=== PATIENT | female | born 1955 | race Caucasian/White ===

== ENCOUNTER → 2017-12-09 11:18 | Outpatient (CLI) | payer BC | END | disposition home or self-care (01) | LOC: D.US 12-08 14:30 | DX: R31.9 Hematuria, unspecified (principal) ==

== ENCOUNTER → 2019-01-13 09:08 | Outpatient (CLI) | payer MEDICARE, BC ==
[2019-01-14 08:11] LABS: IMMUNOGLOBULIN A 258 mg/dL (87-352); IMMUNOGLOBULIN G 827 mg/dL (700-1600); IMMUNOGLOBULIN M 41 mg/dL (26-217)
[2019-01-17 08:08] LABS: IMMUNOGLOBULIN E 37 IU/mL (6-495)
== END | disposition home or self-care (01) ==
LOC: D.RT 09:08
PROVIDERS: ATTEND Internal Medicine Pulmonary Disease
DX: J47.9 Bronchiectasis, uncomplicated (principal); R93.89 Abnormal findings on diagnostic imaging of other specified body structures

== ENCOUNTER → 2019-01-24 08:26 | Outpatient (CLI) | payer MEDICARE, BC ==
[~2019-01-24 08:26] MED LIST: ATIVAN0.5 MG PO; BUPROPION HCL75 MG PO; CLARITIN 10 MG10 MG PO; GINKGO BILOBA120 MG PO; PROZAC40 MG PO; RED YEAST RICE600 MG PO; TRAZODONE HCL150 MG PO
[2019-02-07 12:14] VITALS: BMI 21.6
== END | disposition home or self-care (01) ==
LOC: D.HCCECHO 08:26
PROVIDERS: ATTEND Internal Medicine Cardiovascular Disease
DX: I20.9 Angina pectoris, unspecified (principal)

== ENCOUNTER 2019-02-07 11:27 | Outpatient (CLI) | payer MEDICARE, BC ==
[~2019-02-07] VITALS: Ht 163.8 cm; Wt 58.2 kg
--- NOTE | ~2019-02-07 | HEMODYNAMI ---
PATIENT:RAYMUNDO POLANCO MEDICAL RECORD: [id number] : 59 LOCATION:[facility] ADMISSION DATE: 02/07/19 Generatedon:02/07/201914:22 Patient name: RAYMUNDO POLANCO Patient #: [id number] SSN: [id number] : 1955 Date of study: 02/07/2019 Page: Of Hemodynamic Procedure Report Patient Data Patient Demographics Procedure consent was obtained First Name: RAYMUNDO Gender: Female Last Name: COLLIN : 1955 Middle Initial: ANJELICA Age: 64 year(s) Patient #: [id number] Race: SSN: [id number] Additional ID: [id number] Contact details Address: [address] [place] [address] [address] State: [place] City: [place] Zip code: [address] Past Medical History Allergies Allergen Reaction Date Comments Reported Other 02/07/2019 PCN,STATIN/SULFITE/VICODIN allergy Admission Admission Data Admission Date: 02/07/2019 Admission Time: 11:27 Arrival Date: 02/07/2019 Arrival Time: 0:00 Admit Source: Other Insurance Payor: Medicare HIC #: [id number] Height (in.): 64.57 BSA: 1.63 (m2) Height (cm.): 164 BMI: 21.56 (kg/m2) Weight (lbs.): 127.87 Weight (kg.): 58 Lab Results Lab Result Date: 02/07/2019 Lab Result Time: 0:00 Biochemistry Name Units Result Min Max BUN mg/dl 23 --(----)-* 7 18 Creatinine mg/dl 0.8 --(-*--)-- 0.6 1.3 eGFR ml/min 76.35857 *-(----)-- 90 120 NONAFRICAN CBC Name Units Result Min Max Hemoglobin g/dl 12.1 *-(----)-- 13.5 17.5 Procedure Procedure Types Cath Procedure Diagnostic Procedure LHC LHC w/Coronaries Sedation Charges Moderate Sedation up to 15 minutes Procedure Description Procedure Date Procedure Date: 02/07/2019 Procedure Start Time: 14:07 Procedure End Time: 14:20 Procedure Staff Name Function Paul Rivers MD Performing Physician Ora Saunders RT Monitor Mine Reich RT Monitor Lyric Elizabeth RN Nurse Stacy Morales RT Scrub Procedure Data Cath Procedure Fluoroscopy Diagnostic fluoroscopy Total fluoroscopy Time: 0 time: 0 min min Diagnostic fluoroscopy Total fluoroscopy dose: 182 dose: 182 mGy mGy Contrast Material Contrast Material Type Amount (ml) Isovue 300 61 Entry Location Entry Primary Successful Side Size Upsize Upsize Entry Closure Succes sful Closure Location (Fr) 1 (Fr) 2 (Fr) Remarks Device Remarks Femoral Right 5 Fr Exoseal artery Estimated blood loss: 5 ml Diagnostic catheters Device Type Used For End Catheter Placement MULTIPACK JL 4.0 5Fr Left Coronary catheter Angiography MULTIPACK 3DRC 5Fr Right Coronary catheter Angiography MULTIPACK Pigtail 5 Fr LV Angiography catheter Procedure Complications No complications Procedure Medications Medication Administration Route Dosage 0.9% NaCl I.V. 100 ml/hr Oxygen etCO2 Nasal cannula 2 l/min Lidocaine 2% added to field 20 Heparin Flush Bag added to field 2 bags (1000units/500ml NS) Zofran I.V. 4 mg Versed I.V. 2 mg Fentanyl I.V. 50 mcg Versed I.V. 2 mg Fentanyl I.V. 50 mcg Hemodynamics Rest BSA: 1.63 (m2) HGB: 12.1 (g/dl) O2 Consumption: Estimated: 148.99 (ml/min) O2 Co nsumption indexed: Estimated:91.4 (ml/min/m) Heart Rate: 63 (bpm) Pressure Samples Time Site Value (mmHg) Purpose Heart Use Rate(bpm) 14:15 LV 111/-7,10 Snapshot 72 14:16 AO 109/52(77) Pullback 74 14:16 LV 118/-10,11 Pullback 74 Gradients Valve Time Site 1 Site 2 Mean SEP/DFP Peak To Heart Use (mmHg) (sec/min) Peak Rate (mmHg) (bpm) Aortic 14:16 LV AO 12 23 9 74 118/-10,11 109/52(77) Calculations Valve P-P Mean Valve Index Valve Source Name Gradient Area Flow (cm2) Aortic 9 12 9 12 Snapshots Pre Cath Intra NCS Post Cath Vital Signs Time Heart Resp SPO2 etCO2 NIBP (mmHg) Rhythm Pain Sedation Rate (ipm) (%) (mmHg) Status Level (bpm) 13:49:12 70 14 99 34 98/74(84) NSR 0 (11) 10(A) , No pain 13:54:09 68 15 99 26.8 137/68(119) NSR 0 (11) 10(A) , No pain 13:58:23 68 17 98 27.5 128/68(104) NSR 0 (11) 10(A) , No pain 14:02:33 68 17 100 48.3 124/77(102) NSR 0 (11) 10(A) , No pain 14:06:45 69 18 99 48.3 120/70(100) NSR 0 (11) 10(A) , No pain 14:10:53 76 17 100 54.3 130/75(121) NSR 0 (11) 9(A) , No pain 14:15:07 72 16 99 17.1 106/66(91) NSR 0 (11) 9(A) , No pain 14:19:13 71 18 99 43.1 111/61(88) NSR 0 (11) 10(A) , No pain Medications Time Medication Route Dose Verified Delivered Reason Notes Eff ectiveness by by 13:46:03 0.9% NaCl I.V. 100 Paul Lyric used for ml/hr Silvestre Elizabeth help desk agent 13:46:10 Oxygen etCO2 2 Paul Lyric used for Nasal l/min Silvestre Elizabeth procedure cannula RN 13:46:14 Lidocaine 2% added 20ml Paul Paul for local to vial Silvestre Rivers MD anesthetic field 13:46:18 Heparin Flush added 2 Paul Paul used for Bag to bags Silvestre Rivers MD procedure (1000units/500ml field NS) 13:46:30 Zofran I.V. 4 mg Paul Lyric for nausea Silvestre Elizabeth RN 14:02:35 Versed I.V. 2 mg Paul Lyric for Silvestre Elizabeth sedation RN 14:02:40 Fentanyl I.V. 50 Paul Lyric for mcg Silvestre Elizabeth sedation RN 14:08:18 Fentanyl I.V. 50 Paul Lyric for mcg Silvestre Elizabeth sedation RN 14:08:33 Versed I.V. 2 mg Paul Lyric for Silvestre Elizabeth sedation stripper black and white Log Time Note 13:06:22 Informed consent obtained and on chart 13:08:10 Procedure Status Elective Heart Cath (OP). 13:09:03 Diagnostic Cath Status : Elective 13:09:19 Time tracking: Regular hours (M-F 7:00 - 5:00) 13:09:26 Plan of Care:Hemodynamics will remain stable., Cardiac rhythm will remain stable., Comfort level will be maintained., Respiratory function will remain adequate., Patient/ family verbilizes understanding of procedure., Procedure tolerated without complication., Recovers from procedure without complications.. 13:11:21 Arrival Date: 02/07/2019 12:00:00 AM 13:11:49 Insurance Payor : Medicare 13:11:54 Admit Source: Other 13:12:00 Patient Height : 64.57 inches 13:12:10 Patient Weight : 127.87 lbs 13:13:13 Lab Result : Hemoglobin 12.1 g/dl 13:13:13 Lab Result : eGFR NONAFRICAN 76.48459 ml/min 13:13:13 Lab Result : Creatinine 0.8 mg/dl 13:13:13 Lab Result : BUN 23 mg/dl 13:17:23 ACC Patient presents with Stable Angina CCS Anginal Class 2--Slight limitation of ordinary activity. 13:17:58 ACCPatient has been prescribed/administered the following anti-anginal medication within the last 2 weeks: None 13:19:53 Patient allergic to Other allergyPCN,STATIN/SULFITE/VICODIN 13:34:29 Lyric Elizabeth RN sent for patient. Start room use. 13:41:34 Patient received from Pre/Post Procedure Room to CCL 1 Alert and oriented. Tansferred to table in Supine position. 13:41:36 Warm blankets applied, and dee hugger turned on for patient comfort. 13:41:37 Correct patient and procedure confirmed by team. 13:41:38 ECG and BP/O2 sat monitors applied to patient. 13:46:03 0.9% NaCl 100 ml/hr I.V. was administered by Lyric Elizabeth RN; used for procedure; Verbal order read back and verified. 13:46:10 Oxygen 2 l/min etCO2 Nasal cannula was administered by Lyric Elizabeth RN ; used for procedure; Verbal order read back and verified. 13:46:14 Lidocaine 2% 20ml vial added to field was administered by Paul Rivers MD ; for local anesthetic; Verbal order read back and verified. 13:46:18 Heparin Flush Bag (1000units/500ml NS) 2 bags added to field was administered by Paul Rivers MD; used for procedure; Verbal order read back and verified. 13:46:30 Zofran 4 mg I.V. was administered by Lyric Elizabeth RN; for nausea; Verbal order read back and verified. 13:47:55 Vital chart was started 13:49:58 H&P Date Dictated: 02/07/2019 H&P Addendum completed by physician on da y of procedure. (MUST COMPLETE FOR ALL OUTPATIENTS), New H&P dictated by physician.. 13:50:00 Pre-procedure instructions explained to patient. 13:50:01 Pre-op teaching completed and patient verbalized understanding. 13:50:05 Family in patients room. 13:50:10 Patient NPO since Midnight. 13:50:21 Is the patient allergic to Iodine/contrast media? No. 13:50:24 Was the patient premedicated? Yes 13:50:26 Is patient on blood thinner?No 13:50:33 Patient diabetic? No. 13:50:37 Patient not . Patient is over age 55. 13:50:38 - 13:50:39 ----Pre-sedation anethsthesia assessment.---- 13:50:47 Previous problem with sedation/anesthesia? Yes NAUSEA 13:50:53 Snore? Yes 13:50:55 Sleep apnea? No 13:50:58 Deviated septum? No 13:51:00 Opens mouth fully? Yes 13:51:01 Sticks out tongue? Yes 13:51:05 Airway obstruction? No ? 13:51:13 Dentures? No ? 13:51:35 Pre procedure: right dorsailis pedis pulse 1+ Palpable, but thready & weak; easily obliterated 13:51:41 Pre procedure: left dorsailis pedis pulse 1+ Palpable, but thready & weak; easily obliterated 13:51:54 Modified Darien's test Ulnar > 7 seconds.FAILED. 13:52:25 Patient pain scale 0/10 ?. 13:52:37 IV patent on arrival in left forearm with 0.9% NaCl at [facility]. 13:52:44 Baseline sample Acquired. 13:52:50 Rhythm: sinus rhythm 13:52:53 Full Disclosure recording started 13:53:10 Lab results completed and on chart. 13:55:02 Risk of Mortality: 0.1 13:55:07 Risk of blood transfusion: 2.3 13:55:13 Risk of LEIGHTON: 0.6 13:55:19 Right groin area was prepped with chlora-prep and draped in sterile fashion 13:55:24 Alarms reviewed by R. N. 13:55:24 Sharps counted by scrub and verified by R.N. 13:55:35 Use device set Femoral Dx 13:55:37 ACIST Syringe (55184) opened to sterile field. 13:55:38 Bag Decanter (2002S) opened to sterile field. 13:55:40 Medline Cath Pack ([id number]) opened to sterile field. 13:55:42 ACIST Hand Control (82598) opened to sterile field. 13:55:43 ACIST Manifold (99885) opened to sterile field. 13:55:44 DIAGNOSTIC Multipack 5Fr catheter set ([id number]) opened to sterile field. 13:55:46 Tegaderm 4 x 4 (1626W) opened to sterile field. 13:55:48 SHEATH 5FR [place] ([id number]) opened to sterile field. 13:55:49 EMERALD Guide Wire (463-301) opened to sterile field. 14:00:56 Physician arrived 14:00:57 --------ALL STOP TIME OUT------ 14:00:59 Final Timeout: patient, procedure, and site verified with staff and physician. All members of the team are in agreement. 14:01:01 Right groin site verified by team. 14:01:08 Fire Safety Assessment: A--An alcohol-based skin anteseptic being used preoperatively., C--Open oxygen or nitrous oxide is being used., D--An ESU, laser, or fiber-optic light is being used. 14:01:14 Physical assessment completed. ASA score P 2 - A patient with mild systemic disease as per Paul Rivers MD. 14:01:21 2) 60-89 Mildly reduced kidney function, and other findings (as for stage 1) point to kidney disease. 14:01:26 Maximum allowable contrast dose (3.7 X eGFR X 0.75)214 ml. 14:01:32 Sedation plan: IV Moderate Sedation Medication:Versed, Fentanyl 14:01:54 Zero performed for pressure channel P1 14:02:35 Versed 2 mg I.V. was administered by Lyric Elizabeth RN; for sedation; Verbal order read back and verified. 14:02:40 Fentanyl 50 mcg I.V. was administered by Lyric Elizabeth RN; for sedation ; Verbal order read back and verified. 14:07:32 Procedure started. 14:07:38 Local anesthetic to right femoral artery with Lidocaine 2% by Paul thomas MD.INITIAL ACCESS ONLY 14:08:18 Fentanyl 50 mcg I.V. was administered by Lyric Elizabeth RN; for sedation ; Verbal order read back and verified. 14:08:33 Versed 2 mg I.V. was administered by Lyric Elizabeth RN; for sedation; Verbal order read back and verified. 14:09:48 A 5 Fr sheath was inserted into the Right Femoral artery 14:11:07 A MULTIPACK JL 4.0 5Fr catheter was advanced over the wire and used for Left Coronary Angiography. 14:11:28 LCA angiography performed. 14:11:45 Injector settings: Ml/sec: 3, Volume: 6, 14:12:23 Catheter removed. 14:12:35 A MULTIPACK 3DRC 5Fr catheter was advanced over the wire and used for Right Coronary Angiography. 14:13:37 RCA angiography performed. 14:13:42 Injector settings: Ml/sec: 3, Volume: 6, 14:14:09 ACCDominant side:Left 14:14:18 Catheter removed. 14:14:25 A MULTIPACK Pigtail 5 Fr catheter was advanced over the wire and used for LV Angiography. 14:15:15 LV gram done using CARBONE 14:15:31 Injector settings: Ml/sec: 10, Volume: 20, 14:16:01 LV hemodynamics recorded. 14:16:10 EF : 60 % 14:16:39 Catheter removed. 14:16:51 EXOSEAL 5Fr (EX500) opened to sterile field. 14:17:08 Sheath removed intact; hemostasis achieved with Exoseal to the Right Femoral artery. 14:17:44 Contrast amount:Isovue 300 61ml. 14:17:47 Procedure ended.(Physican Out) 14:18:23 Fluoroscopy time 00.00 minutes. 14:18:30 Fluoroscopy dose: 182 mGy 14:18:30 Flurop Dose total: 182 14:18:39 Dose Area Product 69884 mGy/cm. 14:18:42 Maximum allowable dose exceeded? No. 14:18:45 Sharps counted by scrub and verified by R.N. 14:18:49 Insertion/operative site no bleeding no hematoma. 14:18:54 Post-op/insertion site Right Femoral artery dressed using a 4 x 4 and Tegaderm. 14:19:00 Post right femoral artery:stable 14:19:04 Post Procedure Pulses reassessed and unchanged 14:19:09 Post-procedure physical assessment completed. ASA score P 2 - A patient with mild systemic disease as per Paul Rivers MD. 14:19:14 Post procedure rhythm: unchanged. 14:19:19 Estimated blood loss: 5 ml 14:19:22 Post procedure instruction explained to patient.Patient verbalizes understanding. 14:19:23 Patient needs reinforcement of post procedure teaching. 14:19:41 Procedure type changed to Cath procedure, Diagnostic procedure, LHC, C w/Coronaries, Sedation Charges, Moderate Sedation up to 15 minutes 14:19:43 Procedure and supply charges have been captured, reviewed, submitted an d are correct. 14:20:18 Procedure Complication : No complications 14:20:22 Vital chart was stopped 14:20:26 [facility] Findings: mild to moderate CAD (<70%) 14:20:30 Operative report dictated upon procedure completion. 14:20:31 See physician's report for complete and final results. 14:20:33 Report given to Pre/Post Procedure Room. 14:20:37 Patient transfered to Pre/Post Procedure Room with Stretcher. 14:20:41 Procedure ended. 14:20:41 Full Disclosure recording stopped 14:20:45 End room use (Document Last) 14:20:45 End room use (Document Last) Device Usage Item Name Manufacture Quantity Catalog Hospital Part Current Minimal L ot# / Number Charge Number Stock Stock Serial# Code ACIST Acist 1 [id number] 706222 711332 [id number] 20 Syringe Medical (07562) Systems Inc Bag Microtek 1 2001S 639392 31593 [id number] 5 Decanter Medical Inc. () Medline Medline 1 [id number] 612668 70814 323774 5 Cath Pack ([id number]) ACIST Hand Acist 1 73267 967332 255877 626306 5 Control Medical (36682) Systems Inc ACIST Acist 1 15539 524185 049887 091393 5 Manifold Medical (88260) Systems Inc DIAGNOSTIC Cardinal 1 [id number] 495110 03047 799082 30 Multipack Health 5Fr catheter set (XT7275) Tegaderm 4 3M 1 1626W 480154 376150 377003 5 x 4 (1626W) SHEATH 5FR Terumo 1 [id number] 036462 219580 437880 5 [place] (AJK563) EMERALD Cardinal 1 502-455 209476 712079 422065 5 Guide Wire Health (502-455) MULTIPACK Cardinal 1 776912 5 JL 4.0 5Fr Health catheter MULTIPACK Cardinal 1 179482 5 3DRC 5Fr Health catheter MULTIPACK Cardinal 1 267660 5 Pigtail 5 Health Fr catheter EXOSEAL 5Fr Cardinal 1 EX500 801793 168908 556098 10 (EX500) Health Signature Audit Deaver Stage Time Signature Unsigned Intra-Procedure 02/07/2019 Mine 2:21:31 PM Damir RT(R) (CV) Intra-Procedure 02/07/2019 Lyric Elizabeth 2:22:04 PM RN Intra-Procedure 02/07/2019 Paul Rivers MD 2:22:[address] [id number]
[2019-02-07] MEDS ORDERED: TRAZODONE HCL150 MG PO (11:48)
[2019-02-07] MEDS ORDERED: PROZAC40 MG PO (11:49)
[2019-02-07] MEDS ORDERED: BUPROPION HCL75 MG PO (11:49)
[2019-02-07] MEDS ORDERED: CLARITIN 10 MG10 MG PO (11:50)
[2019-02-07] MEDS ORDERED: ATIVAN0.5 MG PO (11:50)
[2019-02-07] MEDS ORDERED: RED YEAST RICE600 MG PO (11:51)
[2019-02-07] MEDS ORDERED: GINKGO BILOBA120 MG PO (11:51)
[2019-02-07 12:14] VITALS: BP 135/74; Ht 163.8 cm; Wt 58.2 kg
[2019-02-07 12:32] LABS: BASOPHILS 0.8 % (0-2); EOSINOPHILS 1.3 % (0-7); HEMATOCRIT 37.1 % (36.0-48.0); HEMOGLOBIN 12.1 g/dL (12-16); IMMATURE GRANULOCYTES 0.2 % (0-5); LYMPHOCYTES 43.2 % (15-50); MCH 30.9 pg (26.0-34.0); MCHC 32.6 g/dL (31.0-37.0); MCV 94.6 fL (80.0-100.0); MONOCYTES 7.5 % (2-11); PLATELET COUNT 290 10x3/uL (130-400); RBC 3.92 10x6/uL (4.00-5.40); RDW 12.6 % (11.5-14.5); WBC 6.3 10x3/uL (4.8-10.8)
[2019-02-07 12:49] LABS: ALT (SGPT) 24 U/L (10-68); CALC OSMOLALITY 276 mosm/kg (275-300); CALCIUM 8.7 mg/dL (8.5-10.1); CARBON DIOXIDE 32.7 mmol/L (21.0-32.0); CHLORIDE - SERUM 101 mmol/L (98-107); CHOL - HDL RATIO 2.5 ratio (2.3-4.1); CHOLESTEROL, TOTAL 258 mg/dL (0-200); CREATININE - SERUM 0.8 mg/dL (0.6-1.3); GLUCOSE 87 mg/dL (74-106); HDL CHOLESTEROL 105 mg/dL (32-96); LDL CHOLESTEROL 135 mg/dL (0-100); LDL-HDL RATIO 1.3 ratio (1.5-3.5); POTASSIUM - SERUM 3.7 mmol/L (3.5-5.1); SODIUM 137 mmol/L (136-145); TRIGLYCERIDE 94 mg/dL (30-200); UREA NITROGEN 23 mg/dL (7-18); eGFR NON AFRICAN AMERICAN 77 mL/min (90-120)
--- NOTE | 2019-02-07 14:30 | NUR ---
PT ARRIVED BY STRETCHER. PLACED ON MONITORS. ASSESSMENT COMPLETED. VSS.
--- NOTE | 2019-02-07 14:40 | NUR ---
DR. FITZGERALD ROUNDED AND SPOKE WITH PT AND PT'S FAMILY. THEY VOICED UNDERSTANDING. RIGHT GROIN DRESSING C/D/I. NO S/S OF HEMATOMA NOTED.
--- NOTE | 2019-02-07 15:10 | NUR ---
PT RESTING COMFORTABLY. VSS. RIGHT GROIN DRESSING C/D/I. NO S/S OF HEMATOMA NOTED. RIGHT PEDAL PULSE PALPABLE. NO NEEDS AT THIS TIME. FAMILY AT BEDSIDE.
--- NOTE | 2019-02-07 15:44 | NUR ---
HEAD OF BED INC TO 30 DEGREES. TOLERATED WELL. VSS. RIGHT GROIN DRESSING C/D/I. NO S/S OF HEMATOMA NOTED. CALL LIGHT WITHIN REACH. SET UP WITH SANDWICH TRAY AND DRINK. NO OTHER NEEDS AT THIS TIME. DENIES PAIN/NAUSEA.
--- NOTE | 2019-02-07 16:23 | NUR ---
RIGHT GROIN DRESSING C/D/I. NO S/S OF HEMATOMA NOTED. PIV D/C'D WITH CATH TIP INTACT. TOLERATED WELL. DISCUSSED DISCHARGE INSTRUCTIONS WITH PT AND PT'S FAMILY. THEY VOICED UNDERSTANDING. PT INSTRUCTED TO GET UP AND DRESSED. FAMILY AT BEDSIDE TO ASSIST.
--- NOTE | 2019-02-07 16:30 | NUR ---
PT AMBULATED TO RESTROOM. VOIDED WITHOUT DIFFICULTY. RIGHT GROIN DRESSING C/D/I. NO S/S OF HEMATOMA NOTED. PT TAKEN OUT TO VEHICLE BY WHEELCHAIR. NO S/S OF DISTRESS NOTED. ALL BELONGINGS AND PAPERWORK IN HAND.
== END 2019-02-07 16:30 | disposition home or self-care (01) ==
LOC: D.CATH 11:27
PROVIDERS: ATTEND Internal Medicine Cardiovascular Disease
DX: I20.9 Angina pectoris, unspecified (principal); R94.39 Abnormal result of other cardiovascular function study

== ENCOUNTER → 2019-05-04 12:44 | Outpatient (CLI) | payer MEDICARE, BC ==
[2019-02-07 12:14] VITALS: BMI 21.6
== END | disposition home or self-care (01) ==
LOC: D.CT 12:44
PROVIDERS: ATTEND Family Medicine
DX: R22.1 Localized swelling, mass and lump, neck (principal)

== ENCOUNTER → 2019-05-05 16:45 | Outpatient (CLI) | payer MEDICARE, BC ==
[2019-02-07 12:14] VITALS: BMI 21.6
[2019-05-05 17:20] LABS: CHOL - HDL RATIO 2.1 ratio (2.3-4.1); LDL-HDL RATIO 0.9 ratio (1.5-3.5)
== END | disposition home or self-care (01) ==
LOC: D.LABREF 16:45
PROVIDERS: ATTEND Internal Medicine Cardiovascular Disease
DX: E78.5 Hyperlipidemia, unspecified (principal)

== ENCOUNTER → 2019-05-12 12:17 | Outpatient (CLI) | payer MEDICARE, BC ==
[2019-02-07 12:14] VITALS: BMI 21.6
== END | disposition home or self-care (01) ==
LOC: D.US 12:17
PROVIDERS: ATTEND Family Medicine
DX: E04.1 Nontoxic single thyroid nodule (principal)

== ENCOUNTER → 2019-06-13 08:40 | Outpatient (CLI) | payer MEDICARE, BC ==
[2019-02-07 12:14] VITALS: BMI 21.6
== END | disposition home or self-care (01) ==
LOC: D.US 08:40
PROVIDERS: ATTEND Family Medicine
DX: E04.1 Nontoxic single thyroid nodule (principal); R22.1 Localized swelling, mass and lump, neck

== ENCOUNTER → 2019-10-10 21:51 | Outpatient (CLI) | payer MEDICARE, BC ==
[2019-02-07 12:14] VITALS: BMI 21.6
[2019-10-10 22:22] LABS: CHOL - HDL RATIO 1.8 ratio (2.3-4.1); LDL-HDL RATIO 0.7 ratio (1.5-3.5)
== END | disposition home or self-care (01) ==
LOC: D.LABREF 21:51
PROVIDERS: ATTEND Nurse Practitioner
DX: E78.5 Hyperlipidemia, unspecified (principal)

== ENCOUNTER → 2020-02-01 08:51 | Outpatient (CLI) | payer MEDICARE, BC ==
[2019-02-07 12:14] VITALS: BMI 21.6
== END | disposition home or self-care (01) ==
LOC: D.US 08:51
PROVIDERS: ATTEND Nurse Practitioner
DX: R31.9 Hematuria, unspecified (principal)

== ENCOUNTER 2020-07-28 16:32 | Emergency (ER) | payer MEDICARE, BC ==
[~2020-07-28] VITALS: Ht 163.8 cm; Wt 61.4 kg
[2020-07-28 16:33] VITALS: Ht 163.8 cm; Wt 61.4 kg
[2020-07-28] MEDS ORDERED: VOLTAREN75 MG PO (18:09)
[2020-07-28 18:26] VITALS: BP 122/72
== END 2020-07-28 18:28 | disposition home or self-care (01) ==
LOC: D.ER 16:32
DX: M54.5 Low back pain (principal); V89.2XXA Person injured in unspecified motor-vehicle accident, traffic, initial encounter; Y93.9 Activity, unspecified; Y92.9 Unspecified place or not applicable; G89.29 Other chronic pain